=== PATIENT | male | born 1970 | race Caucasian/White ===

== ENCOUNTER 2019-03-20 04:09 | Day surgery (SDC) | payer OTHER ==
[2019-03-20] MEDS ORDERED: NS 0.9% 1000 ML** 1,000 ML IV ONE ×2 (04:40→05:53)
[2019-03-20] MEDS ORDERED: Ketorolac INJ* 15 MG/ML 1 ML VIAL IV ONE (04:40)
[2019-03-20] MEDS ORDERED: Ondansetron INJ* 2 MG/ML VIAL IV ONE ×2 (04:40→07:48)
[2019-03-20 05:25] LABS: ABS Basophils 0.1 10^3/ul (0-0.2); ABS Eosinophils 0.1 10^3/ul (0-0.6); ABS Lymphocytes 1.2 10^3/ul (1.0-4.8); ABS Monocytes 0.8 10^3/ul (0-0.8); ABS Neutrophils 8.6 10^3/ul (1.5-7.7); Eosinophil % 1.1 %; Hematocrit 46 % (42-52); Hemoglobin 15.6 g/dL (14.0-18.0); Lymphocyte % 11.1 %; Mean Corpuscular HGB Conc 34 g/dL (31-36); Mean Corpuscular Hemoglobin 30 pg (27-31); Mean Corpuscular Volume 89 fL (80-94); Mean Platelet Volume 10.7 fL (7.4-10.4); Platelet Count 200 10^3/uL (150-450); Red Cell Distribution Width 14 % (10-15); White Blood Count 10.8 10^3/uL (3.5-10.8)
[2019-03-20 05:39] LABS: Albumin 4.1 g/dL (3.2-5.2); Albumin/Globulin Ratio 1.9 (1-3); BUN/Creatinine Ratio 10.3 (8-20); Calcium 8.9 mg/dL (8.6-10.3); EGFR Non-African American 66.9 (>60); Globulin 2.2 g/dL (2-4); Potassium 3.7 mmol/L (3.5-5.0); Total Bilirubin 0.5 mg/dL (0.2-1.0); Total Protein 6.3 g/dL (6.4-8.9)
[2019-03-20] MEDS ORDERED: Morphine 10 MG/ML VIAL (1 ml) IV ONE (06:38)
--- NOTE | 2019-03-20 07:14 | ED ---
Progress - Progress Note Progress Note: Pt is a signout from Dr. Crotes at 0700 on 03/20/19 pending UA and evaluation by Dr. Steele. Pt report morphine had short term (15 min) effect - no nausa last po 2200 Will give ongoing fluids dilaudid remain NPO 0740 Contacted - Dr. Steele plans to take to the OR - pt updated pt requesting zofran - was able to give urine sample Pt's last PO intake was at 2200 - Results/Orders Results/Orders: Abd XR shows: LEFT NEPHROLITHIASIS. THE RIGHT URETERAL CALCULUS NOTED ON CT IS NOT WELL-VISUALIZED ON THE CURRENT EXAMINATION. ED physician has reviewed this report. Re-Evaluation - Re-Evaluation 1st re-eval Re-Evaluation Time: 08:08 Change: Improved Comment: Pt's pain is much improved, and his nausea is resolved Course/Dx - Course Course Of Treatment: Pt is a signout from Dr. Cortes at 0700 on 03/20/19 pending UA and evaluation by Dr. Steele. Abd XR shows: LEFT NEPHROLITHIASIS. THE RIGHT URETERAL CALCULUS NOTED ON CT IS NOT WELL-VISUALIZED ON THE CURRENT EXAMINATION. - Diagnoses Provider Diagnoses: Kidney stone - Provider Notifications Discussed Care Of Patient With: Pipe Steele Time Discussed With Above Provider: 07:40 Instructed by Provider To: Other - admit to OR Discharge ED - Sign-Out/Discharge Documenting (check all that apply): Patient Departure, Receiving Sign-Out Receiving patient FROM: Dona Cortes - Discharge Plan Condition: Stable Disposition: ADMITTED TO [facility] Referrals: Julian Doran MD [Primary Care Provider] - - Billing Disposition and Condition Condition: STABLE Disposition: Admitted to [facility] - Attestation Statements Document Initiated by Scribe: Yes Documenting Scribe: Anais Mabry Provider For Whom Scribe is Documenting (Include Credential): Divine Maxwell MD. Scribe Attestation: Anais Reyna scribed for Divine Maxwell MD. on 03/20/19 at 0810. Scribe Documentation Reviewed: Yes Provider Attestation: The documentation as recorded by the scribeAnais accurately reflects the service I personally performed and the decisions made by Divine mars MD. Status of Scribe Document: Viewed Consult Consult: 7026 - As per Dr. Steeel, the pt should be admitted to the OR. The pt's last PO intake was at 2200, he is stable, and ready for admission.
[2019-03-20] MEDS ORDERED: cefTRIAXone(*) 2 GM in NS 0.9% 100 ML* 100 ML IVPB ONE (07:37)
[2019-03-20] MEDS ORDERED: HYDROmorphone INJ* 0.5 MG/0.5 ML SYRINGE IV ONE (07:44)
[2019-03-20] MEDS ORDERED: NS 0.9% 1000 ML** 1,000 ML IV SCH (07:45)
--- NOTE | 2019-03-20 08:12 | ED ---
Abdominal Pain/Male - HPI Summary HPI Summary: Patient is a 48 year old male presenting to [facility] with a chief complant of abdominal pain since January 2019 which has since worsened. Patient staes that he has a PMHx of kidney stones. Patient states that he see's Dr. Smith for these episodes. Patient states that he can barley move and has to sit down frequently. Patient reports nausea and vomiting. Patient reports EtOH use and occasional marijuana use. Patient denies fever. Patient states denies tobacco use. Patient rates the pain 9/10. Symptoms aggravated by nothing. Symptoms alleviated by nothing. Home Medications Medication Instructions Recorded Confirmed Type Naproxen Sodium [Aleve] 2 cap PO Q8H PRN 03/28/16 03/20/19 History Omeprazole 20 mg PO DAILY 03/20/19 03/20/19 History - History of Current Complaint Chief Complaint: EDFlankPain Stated Complaint: FLANK PAIN PER PT Time Seen by Provider: 03/20/19 04:40 Hx Obtained From: Patient Onset/Duration: Gradual Onset, Lasting Weeks - January 2019, Worse Since - January 2019 Timing: Constant Severity Currently: Severe Pain Intensity: 8 Pain Scale Used: 0-10 Numeric Location: Discrete At: LUQ Radiates: No Character: Sharp Aggravating Factor(s): Nothing Alleviating Factor(s): Nothing Associated Signs And Symptoms: Positive: Nausea, Vomiting. Negative: Fever - Allergies/Home Medications Allergies/Adverse Reactions: Allergies Allergy/AdvReac Type Severity Reaction Status Date / Time lactose Allergy Unknown Verified 03/20/19 04:28 Reaction Details simvastatin Allergy Unknown Verified 03/20/19 04:28 Reaction Details Home Medications: Home Medications Omeprazole 20 mg PO DAILY 03/20/19 [History Confirmed 03/20/19] PMH/Surg Hx/FS Hx/Imm Hx Respiratory History: Reports: Hx Sleep Apnea - POSSIBLE - UNDIAGNOSISED GI History: Reports: Hx Gastroesophageal Reflux Disease - ACID REFLUX CONTROL WITH MED History: Reports: Hx Kidney Stones - SINCE AGE 16 - (1985) WAS THE FIRST Musculoskeletal History: Reports: Other Musculoskeletal History - NEUROMUSCULAR DISEASE, PARAMYOTONIC [place] Denies: Hx Gout Sensory History: Reports: Hx Contacts or Glasses - GLASSES Denies: Hx Hearing Aid Opthamlomology History: Reports: Hx Contacts or Glasses - GLASSES Neurological History: Reports: Hx Migraine - Q6CIVZE TO 1 MONTH, Hx Nerve Disease, 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 [id number] - SEVERAL PROCEDURES FOR KIDNEY STONES, [facility] [place], [place]. 1999-PRESENT - SEVERAL CYSTOSCOPIES, RETROGRADE, STENT PLACEMENT AND [place]SW[place] [facility] [place]ST[place], RIGHT RETROGRADE, [place] [facility] [place] Anesthesia Reactions: Yes - RESUSCIATION/WISDOM TEETH, PARAMYOTONIC [place] Infectious Disease History: No Infectious Disease History: Denies: Traveled Outside the [place] in Last 30 Days - Family History Known Family History: Positive: Other - FHx of kidney stones - Social History Alcohol Use: Occasionally Hx Substance Use: Yes Substance Use Type: Reports: Marijuana - occasionally Smoking Status (MU): Never Smoked Tobacco Amount Used/How Often: 1/2 PPD FOR ABOUT 15 YEARS Have You Smoked in the Last Year: Yes Review of Systems Negative: Fever Positive: Abdominal Pain, Vomiting, Nausea All Other Systems Reviewed And Are Negative: Yes Physical Exam - Summary Physical Exam Summary: General: Well-developed, Well-nourished MALE. No acute distress. HEENT: Normocephalic, Atraumatic. Eyes: Conjuctiva normal, PERRL. Ears: TMs within normal limits. Nares: (-) discharge, (-) erythema. Oropharynx: Clear, mucous membranes moist, (-) exudates. Neck: Soft, FROM, (-) lymphadenopathy, (-) thyromegaly, (-) JVD. Cardiovascular: Normal sinus rhythm, (-) murmur. Lungs: Clear to auscultation bilaterally (-) wheezes, (-) rales, (-) rhonchi. Abdomen: Soft, mild RUQ tenderness, non-distended, (-) organomegaly, normal bowel sounds. Back: (-) CVA tenderness Extremities: No edema. Skin: Warm, dry, (-) rash. Neuro: Alert and oriented x3, no focal deficits. Psychiatric: Mood normal, affect normal. Triage Information Reviewed: Yes Vital Signs On Initial Exam: Initial Vitals Temp Pulse Resp BP Pulse Ox 97.3 F 69 20 158/91 99 03/20/19 04:10 03/20/19 04:10 03/20/19 04:10 03/20/19 04:10 03/20/19 04:10 Vital Signs Reviewed: Yes Diagnostics - Vital Signs Vital Signs Temp Pulse Resp BP Pulse Ox 03/20/19 07:53 20 03/20/19 07:00 53 96 03/20/19 06:56 52 152/103 97 03/20/19 06:45 22 03/20/19 06:25 57 147/77 99 03/20/19 06:00 59 97 03/20/19 05:55 61 137/77 97 03/20/19 05:25 65 134/77 96 03/20/19 05:00 60 99 03/20/19 04:55 61 159/90 98 03/20/19 04:25 69 153/91 98 03/20/19 04:24 67 99 03/20/19 04:10 97.3 F 69 20 158/91 99 - Laboratory Lab Results: Lab Results 03/20/19 03/20/19 Range/Units 05:10 05:15 WBC 10.8 (3.5-10.8) 10^3/uL RBC 5.20 (4.18-5.48) 10^6 /uL Hgb 15.6 (14.0-18.0) g/dL Hct 46 (42-52) % MCV 89 (80-94) fL MCH 30 (27-31) pg MCHC 34 (31-36) g/dL RDW 14 (10-15) % Plt Count 200 (150-450) 10^3/uL MPV 10.7 H (7.4-10.4) fL Neut % (Auto) 79.9 % Lymph % (Auto) 11.1 % [place] % (Auto) 7.1 % Eos % (Auto) 1.1 % Baso % (Auto) 0.8 % Absolute Neuts (auto) 8.6 H (1.5-7.7) 10^3/ul Absolute Lymphs (auto) 1.2 (1.0-4.8) 10^3/ul Absolute Monos (auto) 0.8 (0-0.8) 10^3/ul Absolute Eos (auto) 0.1 (0-0.6) 10^3/ul Absolute Basos (auto) 0.1 (0-0.2) 10^3/ul Absolute Nucleated RBC 0.0 10^3/ul Nucleated RBC % 0.0 Sodium 142 (135-145) mmol/L Potassium 3.7 (3.5-5.0) mmol/L Chloride 110 (101-111) mmol/L Carbon Dioxide 23 (22-32) mmol/L Anion Gap 9 (2-11) mmol/L BUN 12 (6-24) mg/dL Creatinine 1.16 (0.67-1.17) mg/dL Est GFR ( Amer) 81.0 (>60) Est GFR (Non-Af Amer) 66.9 (>60) BUN/Creatinine Ratio 10.3 (8-20) Glucose 128 H (70-100) mg/dL Calcium 8.9 (8.6-10.3) mg/dL Total Bilirubin 0.50 (0.2-1.0) mg/dL AST 13 (13-39) U/L ALT 17 (7-52) U/L Alkaline Phosphatase 63 (34-104) U/L Total Protein 6.3 L (6.4-8.9) g/dL Albumin 4.1 (3.2-5.2) g/dL Globulin 2.2 (2-4) g/dL Albumin/Globulin Ratio 1.9 (1-3) Result Diagrams: 03/20/19 05:10 03/20/19 05:15 Lab Statement: Any lab studies that have been ordered have been reviewed, and results considered in the medical decision making process. - Radiology Abdomen Xray Radiology Interpretation Completed By: Radiologist Summary of Radiographic Findings: Abdomen Xray reveals, per radiologist, IMPRESSION: LEFT NEPHROLITHIASIS. THE RIGHT URETERAL CALCULUS NOTED ON CT IS NOT WELL-VISUALIZED ON THE CURRENT EXAMINATION. ED Physician has revied this report. - CT Abdomen/Pelvis CT CT Interpretation Completed By: Radiologist Summary of CT Findings: Abdomen/Pelvis CT reveals, per radiologist, IMPRESSION: There is 8mm calculus noted in the proximal left ureter in the vicinity of the UPJ with associated moderate left-sided hydronephrosis. There is a 2 mm calculus noted in the proximal right ureter with no significant right-sided hydronephrosis. Re-Evaluation - Re-Evaluation 1st re-eval Re-Evaluation Time: 08:08 Change: Improved Comment: Pt's pain is much improved, and his nausea is resolved Abdominal Pain Male Course/Dx - Course Course Of Treatment: Pt is a signout from Dr. Cortes at 0700 on 03/20/19 pending UA and evaluation by Dr. Steele. Abd XR shows: LEFT NEPHROLITHIASIS. THE RIGHT URETERAL CALCULUS NOTED ON CT IS NOT WELL-VISUALIZED ON THE CURRENT EXAMINATION. - Diagnoses Provider Diagnoses: Kidney stone - Provider Notifications Time Discussed With Above Provider: 07:40 Instructed by Provider To: Other - admit to OR Discharge ED - Sign-Out/Discharge Documenting (check all that apply): Sign-Out Patient - Pt is a signout from Dr. Cortes at 0700 on 03/20/19 pending UA and evaluation by Dr. Steele. Signing out patient TO: Divine Maxwell Receiving patient FROM: Dona Cortes Patient Received Moderate/Deep Sedation with Procedure: No - Discharge Plan Condition: Stable - Billing Disposition and Condition Condition: STABLE - Attestation Statements Document Initiated by Scribe: Yes Documenting Scribe: Licha Pryor Provider For Whom Rahatibankit is Documenting (Include Credential): Dr. Dona Cortes MD Scribe Attestation: Licha Reyna , scribed for Dr. Dona oCrtes MD on 03/21/19 at 0203. Scribe Documentation Reviewed: Yes Provider Attestation: The documentation as recorded by the rahatibLicha pham accurately reflects the service I personally performed and the decisions made by , Dr. Dona Cortes MD Status of Scribe Document: Viewed
[2019-03-20 08:28] LABS: Urine Appearance Cloudy; Urine Bacteria Absent (Absent); Urine Bilirubin Negative (Negative); Urine Blood 3+ (Negative); Urine Color Yellow; Urine Glucose Negative (Negative); Urine Ketones 1+ (Negative); Urine Nitrite Negative (Negative); Urine Protein 1+(30 mg/dL) (Negative); Urine Red Blood Cell 2+(6-10/hpf) (Absent); Urine Specific Gravity 1.027 (1.010-1.030); Urine Squamous Epithelial Cell Present (Absent); Urine Urobilinogen Negative (Negative); Urine White Blood Cell 2+(11-20/hpf) (Absent)
[2019-03-20] MEDS ORDERED: Famotidine IV* 10 MG/ML 2 ML (20 mg) IV ONE (08:29)
[2019-03-20] MEDS ORDERED: Buffered Lidocaine 1% SYRIN* 1 ML/SYRINGE INTRADERM ONE (08:29)
[2019-03-20] MEDS ORDERED: Dexamethasone IV* 4 MG/ML 1 ML (4 MG) IV SLOW PU ONE (08:29)
[2019-03-20] MEDS ORDERED: Famotidine IV* 10 MG/ML 2 ML (20 mg) ONE (08:44)
[2019-03-20] MEDS ORDERED: Dexamethasone IV* 4 MG/ML 1 ML (4 MG) ONE (08:44)
[2019-03-20] MEDS ORDERED: Lactated Ringers 1000 ML Bag* 1,000 ML IV SCH (09:00)
[2019-03-20] MEDS ORDERED: Midazolam* 1 MG/ML 5 ML VIAL (5 MG) ONE (09:18)
[2019-03-20] MEDS ORDERED: fentaNYL* 50 MCG/ML 2 ML VIAL (100 MCG VIAL) ONE (09:18)
[2019-03-20] MEDS ORDERED: Propofol* 10 MG/ML 20 ML BTL ONE (09:20)
[2019-03-20] MEDS ORDERED: Chloroprocaine 2%* 20 ML VIAL ONE (09:20)
[2019-03-20] MEDS ORDERED: Ondansetron INJ* 2 MG/ML VIAL ONE (09:20)
[2019-03-20] MEDS ORDERED: Iohexol 180 (CONTRAST) 10 ML SDV IV ONE (09:33)
[2019-03-20] MEDS ORDERED: Gentamicin ADULT (*) 160 MG in NS 0.9% 100 ML* 100 ML IVPB ONE (10:00)
--- NOTE | 2019-03-20 10:27 | HP ---
CC: Dr. Julian Doran * ADMITTING HISTORY AND PHYSICAL: DATE OF ADMISSION: 03/20/19 ADMITTING DIAGNOSES: 1. Obstructing calculus, left ureteropelvic junction. 2. Left hydronephrosis. 3. Nonobstructing calculus, right proximal ureter. PLANNED PROCEDURE: Today, is left retrograde and left stent insertion (to be followed in near future by shockwave lithotripsy). SURGEON: Dr. Steele. HISTORY OF PRESENT ILLNESS: Zaid Lama is a 48-year-old gentleman with a history of recurrent bilateral renal calculi. He presented to the emergency room with several-week history of left flank pain and was noted to have 8 mm calculus at the left ureteropelvic junction with moderate left hydronephrosis and an additional left renal calculus. He also has a small 2 mm nonobstructing calculus in the right proximal ureter. PAST MEDICAL HISTORY: Significant for: 1. Recurrent renal calculi. 2. Gastroesophageal reflux. 3. History of adult onset hyperkalemic periodic paralysis. MEDICATIONS ON ADMISSION: 1. Omeprazole 20 mg daily. 2. Naprosyn on p.r.n. basis. ALLERGIES AND INTOLERANCES: SIMVASTATIN and LACTOSE. FAMILY HISTORY: Negative for stones. SOCIAL HISTORY: He is a chronic smoker. REVIEW OF SYSTEMS: He denies any chest pain or shortness of breath. PHYSICAL EXAMINATION GENERAL: Reveals a pleasant middle-aged gentleman, whose is uncomfortable. VITAL SIGNS: Blood pressure is 147/77, pulse 62 per minute, respirations 16 per minute, temperature 36.6, oxygen saturation 97% on room air. LUNGS: Clear bilaterally. CARDIOVASCULAR: Regular rate and rhythm. S1 and S2. ABDOMEN: Soft with left flank tenderness. DIAGNOSTIC STUDIES/LAB DATA: Review of labs reveals white count of 10.8, hemoglobin and hematocrit are normal at 15.6 and 46 with platelet count of 200. Sodium is 142, potassium is 3.7, BUN and creatinine are 12 and 1.16 respectively. Urinalysis is pending at the time of this dictation. I reviewed the imaging studies including the CT scan and x-ray and the plan is to proceed with urgent left stent insertion to be followed in near future by shockwave lithotripsy. I have discussed the procedure in detail with Mr. Lama and his and they agree with the above described plan. [id number]/[facility] #: [id number] ENDER
[2019-03-20] MEDS ORDERED: DiMENhydriNATE IV* 50 MG/ML VIAL IV PUSH PRN (10:31)
[2019-03-20] MEDS ORDERED: oxyCODONE/Acetamin 5/325 MG* TAB PO PRN (10:31)
[2019-03-20] MEDS ORDERED: Naloxone* 0.4 MG/ML 1 ML VIAL IV PRN (10:31)
[2019-03-20] MEDS ORDERED: Ondansetron INJ* 2 MG/ML VIAL IV PRN (10:31)
[2019-03-20] MEDS ORDERED: fentaNYL* 50 MCG/ML 2 ML VIAL (100 MCG VIAL) IV PRN (10:31)
[2019-03-20] MEDS ORDERED: Tamsulosin CAP* 0.4 MG ONE (11:41)
[2019-03-20 12:37] VITALS: BP 153/93
--- NOTE | 2019-03-20 15:19 | OP ---
CC: Dr. Julian Doran * DATE OF OPERATION: 03/20/19 - [facility] DATE OF : 68 SURGEON: Pipe Steele MD ANESTHESIOLOGIST: Dr. Milton. ANESTHESIA: Spinal. PRE-OP DIAGNOSES: 1. Left hydronephrosis. 2. Obstructing calculus, left ureteropelvic junction. 3. Left renal calculus. 4. Nonobstructing calculus, right proximal ureter. POST-OP DIAGNOSES: 1. Left hydronephrosis. 2. Obstructing calculus, left ureteropelvic junction. 3. Left renal calculus. 4. Nonobstructing calculus, right proximal ureter. OPERATIVE PROCEDURE: Cystoscopy, left retrograde pyelogram, left ureteral calculus manipulation, and left stent insertion. INDICATIONS: Zaid Lama is a 48-year-old gentleman who was evaluated for an obstructing calculus in the left proximal ureter and is being brought in for urgent left stent insertion to be followed in the near future by shockwave lithotripsy. OPERATIVE FINDINGS: 1. [id number] median lobe enlargement. 2. Normal-appearing bladder. 3. Left hydronephrosis. COMPLICATIONS: None. POSTOPERATIVE CONDITION: Stable. STENT USED: 7-Belarusian stent, left ureter. DESCRIPTION OF PROCEDURE: After induction of spinal anesthesia, the patient was placed in dorsal lithotomy position. Sequential compression devices were in place and functioning. Initial evaluation revealed a normal-appearing urethra and moderately enlarged median lobe and a normal-appearing bladder. A guidewire was introduced into the left ureter. Retrograde pyelogram revealed fullness of the left collecting system. The urine from the left kidney was somewhat cloudy and was sent for culture and sensitivity. A 7-Belarusian stent was introduced, and after the calculus was manipulated proximally into the renal pelvis, the stent was advanced easily with good proximal and distal positioning obtained. The patient tolerated the procedure satisfactorily and was transferred back to the recovery area in stable condition. [id number]/[facility] #: [id number] [facility]
== END 2019-03-20 14:00 | disposition home or self-care (01) ==
LOC: ED 04:09 → OR 11:09
PROVIDERS: ATTEND Urology
DX: N13.2 Hydronephrosis with renal and ureteral calculous obstruction (principal); N40.0 Benign prostatic hyperplasia without lower urinary tract symptoms; K21.9 Gastro-esophageal reflux disease without esophagitis; E66.9 Obesity, unspecified; Z72.0 Tobacco use
CPT/HCPCS: 36415; 74018; 74176; 74420; 80053; 81003; 81015; 85025; 87086; 99285; C1876; J0696; J1100; J1170; J1580; J1885; J2250; J2270; J2400; J2405; J2704; J3010

== ENCOUNTER 2019-03-30 05:50 | Day surgery (SDC) | payer OTHER ==
[~2019-03-30 05:50] MED LIST: Buffered Lidocaine 1% SYRIN* 1 ML/SYRINGE INTRADERM ONE
[2019-03-30] MEDS ORDERED: NS 0.9% 1000 ML** 1,000 ML IV SCH ×2 (06:00)
[2019-03-30] MEDS ORDERED: cefTRIAXone(*) 2 GM ADDV.VIAL IVPB ONE (06:42)
[2019-03-30] MEDS ORDERED: fentaNYL* 50 MCG/ML 2 ML VIAL (100 MCG VIAL) ONE (07:22)
[2019-03-30] MEDS ORDERED: Midazolam* 1 MG/ML 2 ML VIAL (2 MG) ONE (07:22)
[2019-03-30] MEDS ORDERED: Propofol* 500 MG/50 ML BTL ONE (07:35)
[2019-03-30] MEDS ORDERED: Furosemide IV* 10 MG/ML 2 ML VIAL (20 MG) ONE (08:12)
[2019-03-30] MEDS ORDERED: Dexamethasone IV* 4 MG/ML 1 ML (4 MG) ONE (08:12)
[2019-03-30] MEDS ORDERED: Ondansetron INJ* 2 MG/ML VIAL IV PRN (08:29)
[2019-03-30] MEDS ORDERED: Naloxone* 0.4 MG/ML 1 ML VIAL IV PRN (08:29)
[2019-03-30] MEDS ORDERED: fentaNYL* 50 MCG/ML 2 ML VIAL (100 MCG VIAL) IV PRN (08:29)
[2019-03-30 09:30] VITALS: BP 125/76
--- NOTE | 2019-03-30 15:29 | OP ---
CC: Dr. Julian Doran; Dr. Pipe Steele OPERATIVE REPORT: DATE OF OPERATION: 03/30/19 DATE OF : 68 SURGEON: Pipe Steele MD ANESTHESIOLOGIST: Dr. Butt. ANESTHESIA: General. PRE-OP DIAGNOSIS: Left renal calculus. POST-OP DIAGNOSIS: Left renal calculus. OPERATIVE PROCEDURE: Shock wave lithotripsy of left renal calculus. INDICATIONS: Zaid Lama is a 48-year-old gentleman, who had undergone urgent left stent inserti on for obstructing calculus at the left ureteropelvic junction. At the time of stent insertion, the c alculus had been manipulated back into the left kidney and he is now being brought in for shockwave l ithotripsy. COMPLICATIONS: None. POSTOPERATIVE CONDITION: Stable. DESCRIPTION OF PROCEDURE: After induction of general anesthesia, the patient was placed on the litho tripsy table in supine position. Sequential compression devices were in place and functioning. Afte r localization of calculus using fluoroscopy, shock wave lithotripsy was commenced at a rate of 60 sh ocks per minute. The calculus which was now in the mid to lower pole area of the left kidney could b e clearly visualized and was monitored using fluoroscopy throughout the procedure. After the initial 300 shocks, there was a pause in lithotripsy for several minutes in an effort to minimize any potenti al trauma to the kidney. Lithotripsy was then resumed and periodic imaging revealed good localizatio n and fragmentation and a total of 2000 shocks were administered. The patient tolerated the procedur e satisfactorily and was transferred back to the recovery area in stable condition. [id number]/[facility] #: [id number]
== END 2019-03-30 09:59 | disposition home or self-care (01) ==
LOC: OR 05:50
PROVIDERS: ATTEND Urology
DX: N20.0 Calculus of kidney (principal); Z68.38 Body mass index [BMI] 38.0-38.9, adult; K21.9 Gastro-esophageal reflux disease without esophagitis; Z72.0 Tobacco use; J30.89 Other allergic rhinitis; G71.19 Other specified myotonic disorders
CPT/HCPCS: 74018; J0696; J1100; J1940; J2250; J2704; J3010